=== PATIENT | female | born 1990 | race Caucasian/White ===

== ENCOUNTER 2016-10-24 18:36 | Emergency (ER) | payer OTHER ==
[~2016-10-24] VITALS: Ht 167.6 cm; Wt 115.7 kg
[2016-10-24 18:42] VITALS: BP 126/72; PULSE 67; RESP 16; TEMP 98.2; O2SAT 99
--- NOTE | 2016-10-24 18:46 | NUR ---
AMBULATED TO BED 7
--- NOTE | 2016-10-24 19:00 | NUR ---
pt in bed 7 with c/o right knee pain , Dr camilo aware.
--- NOTE | 2016-10-24 19:05 | NUR ---
ER at bedside examining patient.
--- NOTE | 2016-10-24 19:21 | NUR ---
Patient given written and verbal discharge instructions and verbalizes understanding. ER MD discussed with patient the results and treatment provided. Given copies of tests performed in ER. Patient in stable condition. ID arm band removed. Rx of tylenol #3 given. Patient educated on pain management and to follow up with PMD. Pain Scale 0/10. Opportunity for questions provided and answered.
[2016-10-24 19:25] VITALS: BP 128/72; PULSE 72; RESP 20; TEMP 98.2; O2SAT 99
== END 2016-10-24 19:25 | disposition home or self-care (01) ==
LOC: SED 18:36
DX: M25.561 Pain in right knee (principal); G89.29 Other chronic pain; Z88.1 Allergy status to other antibiotic agents
CPT/HCPCS: 99283